=== PATIENT | male | born 1995 | race Caucasian/White ===

== ENCOUNTER 2025-02-06 11:05 | Emergency (ER) | payer MEDICAID, SELFPAY ==
[2025-02-06 11:17] VITALS: BP 133/73; PULSE 86; RESP 18; TEMP 37.3; O2SAT 97
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
--- NOTE | 2025-02-06 11:21 | XR_ITS ---
Examination: Lumbar spine 3 views Technique one AP lateral coned lateral lower lumbar spine 3 views Date and time: February 06, 2025 1206 hours INDICATIONS: Onset leg pain low back pain today. FINDINGS: Satisfactory alignment lumbar vertebral bodies No lumbar fracture. No significant lumbar disc narrowing IMPRESSION: No lumbar fracture. No significant lumbar disc narrowing
[2025-02-06 11:31] VITALS: BMI 30.3
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
[2025-02-06 12:00] VITALS: BP 172/140; PULSE 91; RESP 17; O2SAT 100
== END 2025-02-06 13:04 | disposition home or self-care (01) ==
PROVIDERS: Emergency Provider Emergency Medicine
DX: Z02.89 Encounter for other administrative examinations (principal); M54.50 Low back pain, unspecified
CPT/HCPCS: 72100; 99283